=== PATIENT | female | born 1945 | race Caucasian/White ===

== ENCOUNTER 2018-10-11 13:45 | Observation (INO) ==
[2018-10-11] MEDS ORDERED: Sodium Chloride 0.9% 1,000 ML PRIMARY IV ONE (14:06)
[2018-10-11] MEDS ORDERED: Lactated Ringers 1,000 ML PRIMARY IV ONE (14:31)
[2018-10-11 15:00] LABS: BASOPHILS # (AUTO) 0.02 10*3/UL; BASOPHILS % (AUTO) 0.1 % (0-1); EOSINOPHILS # (AUTO) 0.01 10*3/UL; EOSINOPHILS % (AUTO) 0 % (0-8); Hematocrit [HCT] 27.5 % (37.0-47.0); Hemoglobin [HGB] 8.7 g/dL (12.0-16.0); LYMPHOCYTES # (AUTO) 0.72 10*3/uL; MEAN CORPUSCULAR HEMOGLOBIN 26.1 PG (27-31); MEAN CORPUSCULAR HGB CONC 31.6 g/dL (33-37); MEAN CORPUSCULAR VOLUME 82.6 FL (81-99); MEAN PLATELET VOLUME 10.6 FL (7.4-12.2); MONOCYTES # (AUTO) 1.44 10*3/UL (0.3-0.8); MONOCYTES % (AUTO) 5.3 % (5-15); NEUTROPHILS # (AUTO) 24.69 10*3/UL; NEUTROPHILS % (AUTO) 91.6 % (50-80); RED BLOOD COUNT 3.33 10^6/uL (4.20-5.40)
[2018-10-11] MEDS ORDERED: Nasal Sanitizer POPSWAB ampule 3 AMP (Nozin) PREOP DOSE ENOS SCH (15:00)
[2018-10-11] MEDS ORDERED: LIDOCAINE W/ SODIUM BICARB 0.5 ML SYR SUBD PRN ×2 (15:00→17:04)
[2018-10-11] MEDS ORDERED: Lactated Ringers 1,000 ML PRIMARY IV SCH (15:00)
[2018-10-11 15:13] LABS: BLOOD UREA NITROGEN 44 mg/dL (7-22)
[2018-10-11 15:26] LABS: PLATELET MORPHOLOGY COMMENT NORMAL MORPHOLOGY (NORM); WBC MORPHOLOGY COMMENT NORMAL MORPHOLOGY (NORM)
[2018-10-11 15:27] LABS: RBC MORPHOLOGY COMMENT SEE COMMENTS (NORM)
--- NOTE | 2018-10-11 15:29 | MINORPROC ---
Outpatient History & Physical Chief Complaint: Patient has a abscesses draining from her left buttocks. She's had it for 5 days Present Illness: Stated in chief complaint Past History: Diabetes, hypertension hypercholesterolemia Patient's had an appendectomy and tonsils removed History: General: WNL, Respiratory: WNL, Cardiovascular: WNL, Gastrointestinal: WNL, Other: ABN (abscess left buttocks) Physical Exam: Chest/Lungs: WNL, Heart: WNL, Other: ABN (abscess left buttock) Allergies/Adverse Reactions: Allergies Allergy/AdvReac Type Severity Reaction Status Date / Time No Known Allergies Allergy Verified 10/11/18 14:17 Impression / Plan: Patient has an abscess of left buttocks. She'll need I&D of this. Risk and benefits explained explained to it.
[2018-10-11] MEDS ORDERED: fentaNYL Inj 100 MCG/2 ML VIAL ONE (15:50)
[2018-10-11] MEDS ORDERED: MIDAZOLAM HCL 2 MG/2 ML VIAL ONE (15:50)
[2018-10-11] MEDS ORDERED: PROPOFOL 10 MG/1 ML (200 MG/20 ML) VIAL IV ONE ×2 (15:50→16:20)
[2018-10-11] MEDS ORDERED: BUPIVACAINE 0.5% W/ EPI - 10 ML VIAL ONE (16:05)
--- NOTE | 2018-10-11 16:13 | PDOC ---
General Adult HPI - General Chief Complaint: Integumentary Stated Complaint: FEVER, DIARRHEA, CHILLS, SOB, TAILBONE ABCESS Date Seen by Provider: 10/11/18 Time Seen by Provider: 13:45 Source: POSITIVE: Patient Exam Limitations: POSITIVE: No limitations Nurse's Notes Reviewed & Considered: Yes - History of Present Illness Initial Comment: The patient is a 73-year-old female who presents to the emergency department with increased pain and swelling to the right buttock. She states that for the past 5 or 6 days she has noticed a painful swollen area to the buttock. During that time she has also had some increased loose watery diarrhea. For the past several days the pain seems to have intensified and she has also had some associated fevers and chills. She is diabetic and states that her blood sugars have been running between 80 and 1:30. Have you received a tetanus shot in the past 10 years?: Unknown - Patient Home Medications Home Medications: Home Medications Allopurinol 300 mg PO DAILY 10/11/18 Amlodipine Besylate 10 mg PO DAILY 10/11/18 Chlorthalidone 25 mg PO DAILY 10/11/18 Glipizide 10 mg PO BID 10/11/18 Hydrocodone/Acetaminophen [[place] 5-325 Tablet] 1 ea PO Q4-6H PRN #20 tab 10/11/18 Lisinopril 20 mg PO BID 10/11/18 Metformin HCl 1,000 mg PO BID 10/11/18 Metronidazole [Flagyl] 500 mg PO Q8H #15 tab 10/11/18 Pravastatin Sodium 20 mg PO BEDTIME 10/11/18 Spironolactone 25 mg PO DAILY 10/11/18 Sulfameth/Trimeth 800/160 Tab [Bactrim DS 800/160 Tab] 1 ea PO Q12HR #10 tab 10/11/18 - Patient Allergies Allergies/Adverse Reactions: Allergies Allergy/AdvReac Type Severity Reaction Status Date / Time No Known Allergies Allergy Verified 10/11/18 17:07 Past Medical History Past Medical History Reviewed: Other (please comment) (As per nursing documentation) ROS - Limitations ROS Limitations: No Limitations Constitution: REPORTS: Chills, Fever Cardiovascular: REPORTS: Denies Cardiac Symptoms Respiratory: REPORTS: Denies Resp Symptoms Neurological: REPORTS: Denies Neuro Symptoms Gastrointestinal: REPORTS: Diarrhea. DENIES: Abdominal Pain, Vomitting Endocrine: DENIES: Fatigue Musculoskeletal: REPORTS: Denies MS Symptoms Genitourinary: DENIES: Dysuria, Flank Pain Eyes: REPORTS: Denies Symptoms ENT: REPORTS: Denies Symptoms Skin: DENIES: Rash General Adult Exam - General Appearance General Appearance: POSITIVE: Alert, Cooperative, No Acute Distress - HEENT HEENT: POSITIVE: Head Inspection Nml, Eyes Inspection Nml, Ears Inspection Nml, Nose Inspection Nml, Pharynx Inspect. Nml - Neck Neck: POSITIVE: Normal Inspection. NEGATIVE: Lymphadenopathy - Respiratory Respiratory: POSITIVE: No Respiratory Distress, Breath Sounds Normal - Cardiovascular Cardiovascular: POSITIVE: Regular Rate & Rhythm, No Murmur Peripheral Pulses: Dorsalis-pedis (R): 2+, Dorsalis-pedis (L): 2+ - Abdomen Abdomen: Soft: (All Quadrants), Denies Tenderness: (All Quadrants) - Rectal Rectal: POSITIVE: Other (Examination the buttocks does reveal a large area of induration approximately 8-9 cm in diameter to the right buttock, there is one area that is oozing purulent material which is cultured) - Skin Skin: POSITIVE: Normal Color, No Rash - Extremities Extremity: Normal ROM: (All Extremities), Normal Inspection: (All Extremities) - Neurological / Psychological Neurological: POSITIVE: Oriented X3, university administrator Normal As Tested, Motor Normal, Sensation Normal General Adult Progress - Results Reviewed by me Lab Results Reviewed by Me: Yes Lab Results:: Laboratory Results 10/11/18 10/11/18 10/11/18 14:06 14:30 14:30 WBC 26.96 H RBC 3.33 L Hgb 8.7 L Hct 27.5 L MCV 82.6 MCH 26.1 L MCHC 31.6 L RDW Std Deviation 45.6 RDW Coeff of Keshav 15.5 H Plt Count 424 H MPV 10.6 Immature Gran % (Auto) 0.3 Neut % (Auto) 91.6 H Lymph % (Auto) 2.7 L Coffey % (Auto) 5.3 Eos % (Auto) 0 Baso % (Auto) 0.1 Immature Gran # (Auto) 0.08 Neut # (Auto) 24.69 Lymph # (Auto) 0.72 Coffey # (Auto) 1.44 H Eos # (Auto) 0.01 Baso # (Auto) 0.02 WBC Morphology Comment Normal morphology Plt Morphology Comment Normal morphology RBC Morph Comment See comments Sodium Potassium Chloride Carbon Dioxide Anion Gap BUN Creatinine Estimated GFR BUN/Creatinine Ratio Glucose Calculated Osmolality Lactic Acid 1.7 Calcium Total Bilirubin AST ALT Alkaline Phosphatase C-Reactive Protein 21.7 H Total Protein Albumin Globulin Albumin/Globulin Ratio 10/11/18 14:30 WBC RBC Hgb Hct MCV MCH MCHC RDW Std Deviation RDW Coeff of Keshav Plt Count MPV Immature Gran % (Auto) Neut % (Auto) Lymph % (Auto) Coffey % (Auto) Eos % (Auto) Baso % (Auto) Immature Gran # (Auto) Neut # (Auto) Lymph # (Auto) Coffey # (Auto) Eos # (Auto) Baso # (Auto) WBC Morphology Comment Plt Morphology Comment RBC Morph Comment Sodium 133 L Potassium 5.6 H Chloride 100 Carbon Dioxide 16 L Anion Gap 17 BUN 44 H Creatinine 2.0 H Estimated GFR Floor Coverings Installer BUN/Creatinine Ratio 22.00 H Glucose 98 Calculated Osmolality 286.0 Lactic Acid Calcium 9.6 Total Bilirubin 0.8 AST 54 H ALT 58 H Alkaline Phosphatase 145 H C-Reactive Protein Total Protein 6.7 Albumin 4.0 Globulin 2.7 Albumin/Globulin Ratio 1.40 CBC and BMP: 10/11/18 14:30 10/11/18 14:30 - Patient's Progress MDM / ED Course: The patient has a large abscess to the buttock. An IV was established and blood cultures and lactate were drawn with initial IV start. Because of the large size of the abscess a surgical consultation was obtained per Dr. Palma. He came and evaluated the patient and made preparations to take patient to the operating room. After the patient was in surgery her blood work revealed a markedly elevated white count of 26. Her CRP is elevated at 21. Her creatinine is 2.0. The patient was admitted for further care per Dr. Palma. - Consult Counseled: POSITIVE: Patient, RE: DX Patient Care Time - Estimated PCT Patient Care Time (In Minutes): 20 Vital Signs - Recent Vital Signs Vital Signs: Vital Signs (Last 8 hours) Temp Pulse Pulse Resp BP BP Pulse Ox 10/12/18 00:17 80 20 119/50 94 10/11/18 20:57 99.4 F 86 16 129/36 94 10/11/18 17:05 98.7 F 88 18 142/50 95 10/11/18 16:45 85 16 114/67 95 10/11/18 16:37 100.2 F H 87 16 97/48 100 - VS Reviewed Vital Signs Reviewed: Yes Discharge Clinical Impression: Abscess and cellulitis of gluteal region, Hyperkalemia, Renal failure Discharge Disposition: Transferred to OR Condition: Fair
--- NOTE | 2018-10-11 16:36 | GEN.OPNOTE ---
Operative Note Surgery Date: 10/11/18 Preoperative Diagnosis: Abscess of the buttocks Postoperative Diagnosis: Complex abscess of the buttocks Procedure: I&D of a complex abscess Surgeon: Amando Palma MD Anesthesia Provider: Tru Bernardo CRNA Anesthesia Type: Local, MAC Estimated Blood Loss (mL): 10 Indications: Patient has a abscess of her buttocks that is draining. She is diabetic. Operative Summary: Patient is placed in left lateral to position. Prepped draped sterile fashion. Given IV sedation. Timeout performed protocols. I then infiltrated half- strength Marcaine along the planned incision between the abscess and another draining spot. I used electrocautery to open up the cavity. Patient had a large complex abscess cavity. There is necrotic fatty tissue. This did not go down to the muscle or to the fascia. I broke up multiple loculations therefore I believe this is a complex abscess. None of these appeared to go to the rectum. I used pulse lavage to wash out the wound. I bluntly and sharply debrided all necrotic tissue. Packed the wound with Multidex and gauze. Procedure Codes - Surgical Procedures Primary Surgical Procedure: Other CPT Code([place]) [place] [address] incision and drainage of a complex abscess)
--- NOTE | 2018-10-11 16:36 | CRNA.PROGR ---
Anesthesia Time - Procedure/Recovery Time Start Date: 10/11/18 End Date: 10/11/18 Anesthesia : Time In: 15:52 Anesthesia : Time Out: 16:34 Anesthesia : Total Time: 42 - Total Anesthesia Time Total Anesthesia Time (minutes): 42 - Other Weight: 117.027 kg Height: 5 ft 8.5 in Body Mass Index (BMI): 38.6 Physical Status: P3 Anesthesia Type: MAC (with local and sedation)
--- NOTE | 2018-10-11 16:37 | PDOC(PROG) ---
Date of Service: 10/11/18 Time of Service: 16:36 Interval History: Patient is recovering from surgery and we noticed that her labs show that her BUN was 40 creatinine was 2.2 with potassium 5.6. His best felt that she comes in for observation. Objective : Data - Labs CBC and BMP: 10/11/18 14:30 10/11/18 14:30
--- NOTE | 2018-10-11 16:37 | CRNA.PROGR ---
Post Anesthesia Phase II - Post Anesthesia Phase II Patient Stable and Discharged To: Phase II Care Assumed By Surgeon: Bo Palma MD Temperature: 100.2 F Pulse Rate: 87 Respiratory Rate: 16 Blood Pressure: 97/48 Pulse Ox: 100 Total Alida Score at Discharge: 10 Post Anesthesia Discharge Criteria Met: Yes
[2018-10-11] MEDS ORDERED: ONDANSETRON 4 MG/2 ML VIAL IVP PRN (17:04)
[2018-10-11] MEDS ORDERED: metroNIDAZOLE Tab 500 MG TAB PO SCH (17:04)
[2018-10-11] MEDS ORDERED: DOCUSATE 100 MG CAPSULE PO PRN (17:04)
[2018-10-11] MEDS ORDERED: CALCIUM CARBONATE 500 MG (TUMS) CHEWABLE TABLET PO PRN (17:04)
[2018-10-11] MEDS ORDERED: MORPHINE SULFATE 2 MG/1 ML IVP PRN (17:04)
--- NOTE | 2018-10-11 19:01 | PDOC ---
HPI - History of Present Illness History of Present Illness: This very nice 73 the female past medical history for morbid obesity hypertension had an abscess that was draining from the buttocks I&D by Dr. solo Stewart he found that her labs had elevated potassium of 5.6 patient was admitted for observation. Eyes any chest pain nausea vomiting Past Medical History Medical History: Hypertension, Tobacco Use: Never Smoker In the Past 12 Months, Have Used or Abuse Any of the Following Substance: None Medication / Allergies Home Medications: Home Medications Medication Instructions Recorded Confirmed Type Allopurinol 300 mg PO DAILY 10/11/18 10/11/18 History Amlodipine Besylate 10 mg PO DAILY 10/11/18 10/11/18 History Chlorthalidone 25 mg PO DAILY 10/11/18 10/11/18 History Glipizide 10 mg PO BID 10/11/18 10/11/18 History Hydrocodone/Acetaminophen [[place] 1 ea PO Q4-6H PRN #20 tab 10/11/18 Rx 5-325 Tablet] Lisinopril 20 mg PO BID 10/11/18 10/11/18 History Metformin HCl 1,000 mg PO BID 10/11/18 10/11/18 History Metronidazole [Flagyl] 500 mg PO Q8H #15 tab 10/11/18 Rx Pravastatin Sodium 20 mg PO BEDTIME 10/11/18 10/11/18 History Spironolactone 25 mg PO DAILY 10/11/18 10/11/18 History Sulfameth/Trimeth 800/160 Tab 1 ea PO Q12HR #10 tab 10/11/18 Rx [Bactrim DS 800/160 Tab] Allergies/Adverse Reactions: Allergies Allergy/AdvReac Type Severity Reaction Status Date / Time No Known Allergies Allergy Verified 10/11/18 17:07 Review of Systems - Review of Systems All Systems: Reviewed & No Additional Complaints Except as Stated - Respiratory Respiratory: DENIES: Negative System Review, Cough, Sputum, Dyspnea At Rest, Dyspnea with Exertion, Pleuritic Pain, Hemoptysis, Wheezing, Other, See HPI - Cardiovascular Cardiovascular: DENIES: Negative System Review, Chest Pain, Edema, Syncope, Palpitations, Orthopnea, Paroxysmal Nocturnal Dyspnea, Other, See HPI - Gastrointestinal Gastrointestinal / Abdominal: DENIES: Negative System Review, Nausea, Vomiting, Diarrhea, Constipation, Abdominal Pain, Bloody Stool, Poor Appetite, Heartburn, Regurgitation, Bloating, Lactose Intolerance, Melena, Bright Red Blood per Rectum, Other, See HPI Exam - Vitals Vital Signs: Vital Signs Temperature 98.7 F Temperature Source Oral Pulse Rate [Pulse Oximeter] 88 Pulse Rate 85 Respiratory Rate 18 Blood Pressure [Right Arm] 129/67 Blood Pressure [Right Radial 142/50 Artery] Blood Pressure 114/67 Pulse Ox 95 Oxygen Flow Rate RA Oxygen Delivery Method Room Air Height 5 ft 8.5 in Weight 288 lb - General General Appearance: No Acute Distress, Cooperative - Respiratory Respiratory Exam: POSITIVE: Clear to Auscultation - Bilaterally, Breathing Non Labored, Normal To Percussion, Normal to Percussion and Palpation - Cardiovascular Cardiovascular Exam: POSITIVE: RRR, No Murmur, No Clicks, No Gallops, No Rubs, PMI Non-Displaced - GI/Abdominal GI/Abdominal Exam: POSITIVE: Normal Bowel Sounds, Non Tender, Non Distended, Soft, No Masses, No Hepatomegaly, No Splenomegaly, No Organomegaly Results - Labs CBC and BMP: 10/11/18 14:30 10/11/18 14:30 Assessment and Plan - Patient Problems (1) Hyperkalemia Current Visit: Yes Status: Acute Comment: Draped the patient stop ARB's recheck CMP before midnight Code(s): E87.5 - Hyperkalemia (2) Acute kidney injury Current Visit: Yes Status: Acute Comment: I cleaned prerenal hydrate patient follow labs in the morning Code(s): N17.9 - Acute kidney failure, unspecified (3) Leukocytosis Current Visit: Yes Status: Acute Code(s): D72.829 - Elevated white blood cell count, unspecified (4) Abscess and cellulitis of gluteal region Current Visit: Yes Status: Acute Comment: Invanz IV Code(s): L02.31 - Cutaneous abscess of buttock; L03.317 - Cellulitis of buttock
[2018-10-11] MEDS ORDERED: Ertapenem Inj 1 GM in Sodium Chloride 0.9% 100 ML IV SCH (19:15)
[2018-10-11] MEDS: Sodium Chloride 0.9% 1,000 ML IV SCH (19:49)
[2018-10-11] MEDS ORDERED: SULFAMETHOXAZOLE/TRIMETHOPRIM 800/160 MG TABLET PO SCH ×2 (21:00)
[2018-10-11] MEDS: FAMOTIDINE 20 MG TABLET PO SCH (21:39)
[2018-10-12 00:44] LABS: BLOOD UREA NITROGEN 44 mg/dL (7-22); BUN/CREATININE RATIO 25.88 (6-20); SERUM ALBUMIN 3.2 g/dL (3.5-4.8)
[2018-10-12] MEDS: Sodium Chloride 0.9% 1,000 ML IV SCH ×3 (03:51→20:44)
[2018-10-12 04:59] LABS: BASOPHILS # (AUTO) 0.02 10*3/UL; BASOPHILS % (AUTO) 0.1 % (0-1); EOSINOPHILS # (AUTO) 0.03 10*3/UL; EOSINOPHILS % (AUTO) 0.1 % (0-8); Hematocrit [HCT] 23.9 % (37.0-47.0); Hemoglobin [HGB] 7.7 g/dL (12.0-16.0); LYMPHOCYTES # (AUTO) 1.39 10*3/uL; MEAN CORPUSCULAR HEMOGLOBIN 26.5 PG (27-31); MEAN CORPUSCULAR HGB CONC 32.2 g/dL (33-37); MEAN CORPUSCULAR VOLUME 82.1 FL (81-99); MEAN PLATELET VOLUME 10.6 FL (7.4-12.2); MONOCYTES # (AUTO) 1.14 10*3/UL (0.3-0.8); NEUTROPHILS # (AUTO) 19.93 10*3/UL; NEUTROPHILS % (AUTO) 88.2 % (50-80); RED BLOOD COUNT 2.91 10^6/uL (4.20-5.40)
[2018-10-12 05:43] LABS: PLATELET MORPHOLOGY COMMENT NORMAL MORPHOLOGY (NORM); RBC MORPHOLOGY COMMENT NORMAL MORPHOLOGY (NORM); WBC MORPHOLOGY COMMENT NORMAL MORPHOLOGY (NORM)
[2018-10-12] MEDS ORDERED: Sodium Chloride 0.9% 1,000 ML PRIMARY IV ONE (06:04)
[2018-10-12] MEDS: HYDROcodone-APAP 5 MG -325 MG TABLET PO PRN ×2 (10:03→20:42)
[2018-10-12] MEDS: FAMOTIDINE 20 MG TABLET PO SCH ×2 (10:03→20:42)
[2018-10-12] MEDS: metroNIDAZOLE 500mg (Premix) 500 MG/100 ML BAG IV SCH ×2 (10:05→18:11)
--- NOTE | 2018-10-12 11:21 | PDOC(PROG) ---
Subjective Pain Management: PO Date of Service: 10/12/18 Time of Service: 11:21 Interval History: Patient doing okay. Objective : Data - Labs CBC and BMP: 10/12/18 04:26 10/11/18 23:32 - Vital Signs Vital Signs and I&O: Vital Signs - Last Taken Temperature 98.3 F 10/12/18 07:08 Pulse Rate 85 10/12/18 07:08 Respiratory Rate 20 10/12/18 07:08 Blood Pressure 143/46 10/12/18 07:08 Pulse Ox 94 10/12/18 07:08 Intake and Output (24hr x 4 totals) 10/10/18 10/11/18 10/12/18 10/13/18 05:59 05:59 05:59 05:59 Intake Total 2068 / 2068 540 / 540 Output Total 860 / 860 225 / 225 Balance 1208 / 1208 315 / 315 Objective : Exam - General General Appearance: Cooperative - Rectal Additional Rectal Exam Details: The abscess actually looks real clean. There is a very good granulation tissue starting. No areas of necrosis Assessment and Plan - Patient Problems (1) Abscess and cellulitis of gluteal region Current Visit: Yes Status: Acute Code(s): L02.31 - Cutaneous abscess of buttock; L03.317 - Cellulitis of buttock - Assessment / Plan Additional Assessment/Plan Details: At this point will continue with dressing changes. We'll work with the to see if he can take care of this. As far as her other medical problems as in the care of Dr. Vera
[2018-10-12] MEDS ORDERED: Zolpidem Tab 5 MG TAB PO ONE (21:00)
[2018-10-13] MEDS: HYDROcodone-APAP 5 MG -325 MG TABLET PO PRN ×2 (00:57→07:20)
[2018-10-13] MEDS: metroNIDAZOLE 500mg (Premix) 500 MG/100 ML BAG IV SCH ×2 (00:57→08:35)
[2018-10-13 04:57] LABS: BASOPHILS # (AUTO) 0.03 10*3/UL; BASOPHILS % (AUTO) 0.2 % (0-1); EOSINOPHILS # (AUTO) 0.22 10*3/UL; EOSINOPHILS % (AUTO) 1.2 % (0-8); Hematocrit [HCT] 24.2 % (37.0-47.0); Hemoglobin [HGB] 7.5 g/dL (12.0-16.0); LYMPHOCYTES # (AUTO) 1.42 10*3/uL; MEAN CORPUSCULAR HEMOGLOBIN 25.8 PG (27-31); MEAN CORPUSCULAR VOLUME 83.2 FL (81-99); MEAN PLATELET VOLUME 10.5 FL (7.4-12.2); MONOCYTES # (AUTO) 0.87 10*3/UL (0.3-0.8); MONOCYTES % (AUTO) 4.9 % (5-15); NEUTROPHILS # (AUTO) 15.18 10*3/UL; NEUTROPHILS % (AUTO) 85.4 % (50-80); RED BLOOD COUNT 2.91 10^6/uL (4.20-5.40)
[2018-10-13 05:25] LABS: BLOOD UREA NITROGEN 38 mg/dL (7-22); BUN/CREATININE RATIO 29.23 (6-20); SERUM ALBUMIN 2.9 g/dL (3.5-4.8)
[2018-10-13 05:27] LABS: PLATELET MORPHOLOGY COMMENT NORMAL MORPHOLOGY (NORM); RBC MORPHOLOGY COMMENT SEE COMMENTS (NORM); WBC MORPHOLOGY COMMENT NORMAL MORPHOLOGY (NORM)
[2018-10-13 06:35] VITALS: BP 138/61; RESP 16; TEMP 97.3; O2SAT 94
[2018-10-13] MEDS: FAMOTIDINE 20 MG TABLET PO SCH (08:35)
--- NOTE | 2018-10-13 09:55 | DCSUMMARY ---
Hospitalization Summary Admit Date: 10/11/2018 Discharge Date: 10/13/18 Hospital Course: Discharge diagnoses 1. Left buttock abscess status post incision and drainage 2. Hypertension 3. Diabetes 4. Leukocytosis, likely secondary to the abscess 5. Anemia, need monitoring and possible investigation as an outpatient 6. Acute on chronic renal failure 7. History of gout 8. Obesity 9. Hyperkalemia, mild Hospital course This is a 73 years old female with medical history significant for history of diabetes, hypertension, obesity and hypercholesterolemia who came into the hospital because of pain in the left buttock was found to have an abscess Dr Hi took her to surgery and she had incision and drainage of the left buttock abscess. Lab did show that she had leukocytosis, anemia and renal failure and hence the admission. Patient was put on IV antibiotics and IV fluid. Patient was admitted by Dr. Maxwell please see his note. Blood pressure medication where withheld. I saw the patient on the day of discharge she feels better her pain seemed to be controlled. I looked at the wound seems to be clean and there is no area of cellulitis around it. We thought that the patient could be discharged home and follow-up with her primary. I did tell her that's they need to keep an eye on her kidney function and blood count aa she had some anemia. She may need more investigation down the road when she recovere from this illness. Her last the kidney function done at clinic whom I called the was done in August and her creatinine was 1.5 and BUN was 25. Her hemoglobin back in May was 12. On discharge we told her to hold lisinopril, chlorthalidone and aldactone until she sees her primary. She can resume her amlodipine, glipizide and metformin. Pain medication and antibiotics were written also by Dr. Palma. She'll follow-up also with her primary and Dr. Palma next week and with PT for daily dressing changes. Discharge suction Diet regular activity as started Medications Current Medication(s) Medication Instructions Recorded Confirmed Type Allopurinol 300 mg PO DAILY 10/11/18 10/11/18 History Amlodipine Besylate 10 mg PO DAILY 10/11/18 10/11/18 History Glipizide 10 mg PO BID 10/11/18 10/11/18 History Hydrocodone/Acetaminophen [[place] 1 ea PO Q4-6H PRN #20 tab 12/31/18 Rx 5-325 Tablet] Metformin HCl 1,000 mg PO BID 10/11/18 10/11/18 History Metronidazole [Flagyl] 500 mg PO Q8H #15 tab 10/11/18 Rx Pravastatin Sodium 20 mg PO BEDTIME 10/11/18 10/11/18 History Sulfameth/Trimeth 800/160 Tab 1 ea PO Q12HR #10 tab 10/11/18 Rx [Bactrim DS 800/160 Tab] Follow-up with PCP next week and with nausea neck suite Condition at discharge was stable for discharge Exam - Vitals Vital Signs: Vital Signs Temperature 97.3 F Temperature Source Temporal Artery Scan Pulse Rate [Pulse Oximeter] 75 Pulse Rate 85 Respiratory Rate 16 Blood Pressure [Right Arm] 138/61 Blood Pressure [Right Radial 155/62 Artery] Blood Pressure 114/67 Pulse Ox 94 Oxygen Flow Rate RA Oxygen Delivery Method Room Air Height 5 ft 8.5 in Weight 288 lb - General General Appearance: No Acute Distress, Cooperative, Morbidly Obese - Head Head Exam: Normal Inspection - Eye Eye Exam: POSITIVE: Normal Appearance - ENT ENT Exam: POSITIVE: Normal Exam - Neck Neck Exam: Normal Inspection - Respiratory Respiratory Exam: POSITIVE: Clear to Auscultation - Bilaterally - Cardiovascular Cardiovascular Exam: POSITIVE: RRR - GI/Abdominal GI/Abdominal Exam: POSITIVE: Normal Bowel Sounds, Non Tender, Non Distended, Soft, No Organomegaly - Rectal Additional Rectal Exam Details: The wound seemed to be clean. There is no area of cellulitis. No significant drainage at the time of examination. - External Exam: POSITIVE: Deferred - Extremities Extremities Exam: POSITIVE: Normal Inspection - Back Back Exam: POSITIVE: Normal Inspection - Neurological Neurological Exam: POSITIVE: Alert, Oriented x 3, CN II-XII Intact, No Facial Droop, Speech Intact / Clear, Moves All Extremities Equally - Psychiatric Psychiatric Exam: POSITIVE: Normal Affect - Integumentary Integumentary Exam: POSITIVE: Normal Color
== END 2018-10-13 11:40 | disposition home or self-care (01) ==
LOC: ER 13:45 → MED/SURG 15:39 → OR 15:39 → OPS 16:00 → MED/SURG 16:37
PROVIDERS: ADMIT Internal Medicine; ATTEND Internal Medicine